=== PATIENT | female | born 1980 | race Caucasian/White ===

== ENCOUNTER 2020-04-15 22:38 | Emergency (ER) | payer MEDICAID ==
[~2020-04-15] VITALS: Ht 160 cm; Wt 79.6 kg
[~2020-04-15 22:38] MED LIST: CLIN150C2 PO; MELO-82 PO; METF500T PO; REM15T PO
[2020-04-16] MEDS ORDERED: sulfamethoxazole/trimethoprim DS (800/160mg) tablet PO ONE (00:40)
[2020-04-16] MEDS ORDERED: SULF-15 PO (00:40)
[2020-04-16] MEDS ORDERED: SULF-14 PO (00:42)
[2020-04-16 00:56] VITALS: BP 155/89
== END 2020-04-16 00:58 | disposition home or self-care (01) ==
LOC: ER 22:39
DX: L03.211 Cellulitis of face (principal); E11.9 Type 2 diabetes mellitus without complications; Z90.89 Acquired absence of other organs; Z90.49 Acquired absence of other specified parts of digestive tract; Z88.0 Allergy status to penicillin; Z88.8 Allergy status to other drugs, medicaments and biological substances; Z79.899 Other long term (current) drug therapy
CPT/HCPCS: 99283

== ENCOUNTER 2025-03-28 14:27 | Emergency (ER) | payer MEDICAID ==
[2025-03-28 14:51] VITALS: BP 180/108; PULSE 104; RESP 18; TEMP 96.1; O2SAT 98
--- NOTE | 2025-03-28 14:54 | Physician Documentation ---
History of Present Illness ~ Chief Complaint: Eye Pain Stated Complaint: R EYE PAIN Time Seen by MD: 15:37 HPI Three days of right eye pain and redness. Denies having any animals this is a partner recently had pinkeye.reports crusty discharge Says that he used her her recently prescribed antibiotics on her eye without any improvemtn neomycin Day of Onset: Mar 28, 2025 Medication Reconciliation Allergies: Coded Allergies: Penicillins (Verified Allergy, Severe, swelling, 03/28/25) Tetracyclines (Verified Allergy, Severe, swelling, 03/28/25) Scheduled Clindamycin (Cleocin ), 150 MG PO BID, (Reported) Meloxicam (Meloxicam), MG PO DAILY, (Reported) Metformin Hcl* (Glucophage*), MG PO DAILY, (Reported) Mirtazapine* (Remeron*), 15 MG PO HS, (Reported) Past Medical History Past Medical History: Diabetes Past Surgical History: cholecystectomy, tonsillectomy Alcohol Use: None Drug Use: none Review of Systems All Other Systems at this time: Reviewed and Negative Physical Exam Physical Exam General: Alert, no apparent distress. HEENT: PERRL, EOMI, no injection, moist mucous membranes. conjunctiva and sclera injected Skin: Normal color, warm and dry. No edema, no ecchymosis. Progress Results/Orders Results/Orders Vital Signs 03/28/25 14:51 Temp 96.1 Pulse 104 Resp 18 B/P (MAP) 180/108 Pulse Ox 98 Medical Decision Making Findings Going to treat empirically for suspected bacterial conjunctivitis. considered ciprodex, however it is not in our formulary. Eye Diff. Dx: Considerations: Include: Chalazoin, Conjuctivits-allergic, Conjuctivitis-bacterial, Conjuctivits-chlamydial, Conjuctivitis-viral, Corneal abrasion, Corneal laceration, Corneal ulceration, Foreign body-conjuctiva, Foreign body-corneal, Foreign body-intraocular, Foreign body-lid, Glaucoma, Globe rupture, Hordeolum, Iritis, Orbital cellulitis, Periobital cellulitis, Retinal artery occulsion, Retinal vein occlusion, Rust ring, Subconjunctival hem, Ultraviolet keratitis, Uveitis, Vitreous hemorrhage, Other Departure Disposition: 01 HOME / SELF CARE / HOMELESS Impression: Primary Impression: Conjunctivitis Discharge Instructions: Bacterial Conjunctivitis, Adult, [id number] Referrals: NO PRIMARY CARE PROVIDER (PCP) Prescriptions Ciprofloxacin Hcl Ophth* (Ciloxan 0.35 Ophth Drops*) 2.5 Ml Bottle 1 DROP RIGHTEYE Q6H for 7 Days, #5 ML Prov: DONAVAN RUSSELL NP 03/28/25 Education Educated: Patient Educated regarding: diagnosis Signature Scribe Signature: r Attestation: Scribed for Emergency,Department by Donavan Russell - JOHN . 03/28/25 14:54 DONAVAN RUSSELL NP Mar 28, 2025 14:54
[2025-03-28] MEDS ORDERED: ciprofloxacin 0.3% 2.5ml ophthalmic solution LEFTEYE ONE (15:50)
[2025-03-28] MEDS ORDERED: CIPR2.5D21 RIGHTEYE (15:58)
== END 2025-03-28 15:58 | disposition home or self-care (01) ==
LOC: ER 14:27
DX: H10.9 Unspecified conjunctivitis (principal); E11.9 Type 2 diabetes mellitus without complications; Z88.0 Allergy status to penicillin; Z88.1 Allergy status to other antibiotic agents; Z90.49 Acquired absence of other specified parts of digestive tract; Z90.89 Acquired absence of other organs; Z79.84 Long term (current) use of oral hypoglycemic drugs; Z79.899 Other long term (current) drug therapy
CPT/HCPCS: 99283